=== PATIENT | male | born 1995 | race African-American/Black ===

== ENCOUNTER 2018-03-21 15:38 | Emergency (ER) | payer MEDICAID ==
[~2018-03-21] VITALS: Ht 172.7 cm; Wt 68.0 kg
[2018-03-21] MEDS ORDERED: OXYCODONE HCL/ACETAMINOPHEN 5/325MG TABLET PO ONE (16:00)
[2018-03-21] MEDS ORDERED: BACITRACIN ZINC 15GM TUBE TOP ONE (17:15)
[2018-03-21 17:55] VITALS: BP 109/68
== END 2018-03-21 17:55 | disposition home or self-care (01) ==
LOC: ER 15:38
DX: S80.812A Abrasion, left lower leg, initial encounter (principal); S80.12XA Contusion of left lower leg, initial encounter; V13.4XXA Pedal cycle driver injured in collision with car, pick-up truck or van in traffic accident, initial encounter; Y93.89 Activity, other specified; Y92.488 Other paved roadways as the place of occurrence of the external cause
CPT/HCPCS: 73590; 73630; 99284